=== PATIENT | female | born 1965 | race African-American/Black ===

== ENCOUNTER 2016-11-01 16:22 | Outpatient (CLI) | payer MEDICAID ==
[2014-01-25 06:44] VITALS: BMI 24.8
[~2016-11-01 16:22] MED LIST: PROTONIX40 MG PO
== END 2016-11-01 17:35 ==
LOC: D.MAMMO 16:22
DX: Z12.31 Encounter for screening mammogram for malignant neoplasm of breast (principal)

== ENCOUNTER 2016-12-05 05:30 | Inpatient (IN) | payer MEDICAID ==
[2016-12-03 12:33] LABS: HEMATOCRIT 41.2 % (36.0-48.0); MCH 28.6 pg (26.0-34.0); MCV 84.3 fL (80.0-100.0); MEAN PLATELET VOLUME 11.2 fL (7.4-10.4); PLATELET COUNT 217 10x3/uL (130-400); RBC 4.89 10x6/uL (4.00-5.40); RDW 12.6 % (11.5-14.5); WBC 2.6 10x3/uL (4.8-10.8)
[2016-12-03 12:41] LABS: CALC OSMOLALITY 284 mosm/kg (275-300); CALCIUM 9.2 mg/dL (8.5-10.1); CARBON DIOXIDE 31.5 mmol/L (21.0-32.0); CHLORIDE - SERUM 104 mmol/L (98-107); CREATININE - SERUM 0.8 mg/dL (0.6-1.3); GLUCOSE 108 mg/dL (74-106); SODIUM 141 mmol/L (136-145); UREA NITROGEN 20 mg/dL (7-18); eGFR NON AFRICAN AMERICAN 80 mL/min (90-120)
[2016-12-03 13:26] LABS: ANISOCYTOSIS OCC; EOSINOPHILS 5 % (0-7); LYMPHOCYTES 41 % (15-50); MONOCYTES 7 % (2-11); NEUTROPHILS 45 % (40-80); PLATELET ESTIMATE NORMAL; ROULEAUX OCC
[2016-12-05] VITALS (15 sets, daily range): BP systolic 141–174; BP diastolic 65–79; Ht 165.1 cm; Wt 70.0 kg
[~2016-12-05] VITALS: Ht 165.1 cm; Wt 70.0 kg
[~2016-12-05 05:30] MED LIST changes: +HCTZ25 MG PO; +MULTIPLE VITAMI1 TA1 PO
[2016-12-05 07:08] LABS: HCG SERUM NEGATIVE (NEGATIVE)
--- NOTE | 2016-12-05 07:24 | HP ---
PATIENT: LUÍS PRECIADO MEDICAL RECORD: [id number] ACCOUNT: [id number] LOCATION:[facility] : 65 ADMISSION DATE: 12/05/16 HISTORY AND PHYSICAL EXAMINATION HISTORY OF PRESENT ILLNESS: This patient is a 51-year-old 2, para 2 female with diagnosis of postmenopausal bleeding and enlarging uterus with myomas. She is scheduled for hysterectomy on December 05. MEDICAL HISTORY: PREVIOUS SURGERIES: Include a tubal ligation and a tubal reversal. MEDICAL PROBLEMS: No heart disease. No diabetes. No hypertension. ALLERGIES: No known drug allergies. CURRENT MEDICATIONS: Diclofenac. FAMILY HISTORY: Positive for Alzheimer, colon cancer, diabetes, heart disease, hypertension and strokes. SOCIAL HISTORY: The patient is single. Occasional ethanol use, nonsmoker. PHYSICAL EXAMINATION: GENERAL: Well-developed and well-nourished female, in no distress. HEENT: Unremarkable. LUNGS: Clear. HEART: Regular rate and rhythm. ABDOMEN: Soft and nontender. PELVIC: Examination is current and deferred for anesthesia. EXTREMITIES: No cyanosis, clubbing, or edema. NEUROLOGICAL: Grossly intact. VITAL SIGNS: Weight 154, blood pressure 130/70. IMPRESSION: Postmenopausal bleeding with benign endometrial biopsy, ultrasound revealing uterine enlargement consistent with myomas, small ovarian cyst. PLAN: After discussing problems with the patient and the enlargement of her uterus, total abdominal hysterectomy with probable bilateral salpingo-oophorectomy is planned. I have discussed the need for estrogen replacement therapy and answered all of her questions. She understands the risks include anesthesia, infection, bleeding, possibility of injury to other organs, possibility of second operation. TRANSINT:[id number] Voice Confirmation ID: [id number] DOCUMENT ID: [id number] HISTORY AND PHYSICAL [id number] LUÍS PRECIADO BUCK ALLISON MD at 0724 CC: [id number] DICTATION DATE: 12/03/161702 ALGOLOGIST: 12/03/16 [id number] [place] [address]
--- NOTE | 2016-12-05 11:23 | NUR ---
STEFAN BAUTISTA RN RECEIVED PT FROM . PT IN SEMI FOWLERS POSITION. RESP. EVEN AND UNLABORED PER RN. PRABHJOT LEYVA RN FROM REMAINS IN ROOM AT THIS TIME.
--- NOTE | 2016-12-05 11:45 | NUR ---
ADMISSION ASSESSMENT DONE. SEE FLOW SHEET. 22G IV IN LEFT HAND. SITE CLEAN DRY AND INTACT. LR HANGING AND DRIPPING IN WITHOUT PUMP. PLACED ON PUMP AT 125ML/HR. ROOFER HELPER VINYL COATING DEMEROL SET UP AT 10MG EVERY 10MINUTES. PT RATING PAIN 8/10. 25MG BOLUS GIVEN THROUGH ROOFER HELPER VINYL COATING AT THIS TIME. PT REPORTS NAUSEA. LUNGS CLEAR TO AUSCULTATION. BOWEL SOUNDS HYPOACTIVE. BIKINI LINE INCISION NOTED TO BE CLEAN DRY AND INTACT WITH STERI STRIPS. NO BLEEDING NOTED AT THIS TIME.[address] DRAINING TO GRAVITY. GREEN TINGED URINE NOTED IN COLLECTION CONTAINER. SCD LEGGINGS CONNECTED TO PUMP AND PUMP TURNED ON. ICE PACK APPLIED TO INCISION. FAMILY REMAINS AT BEDSIDE AND DENIES FURTHER NEEDS.
--- NOTE | 2016-12-05 12:50 | NUR ---
PT IN SEMI ORDAZ SPOSITION. AROUSES TO TACTILE STIMULATION. ICE CHIPS PROVIDED. PT RATES PAIN 4/10. SOCKS PROVIDED. PT DENIES FURTHER NEEDS [facility].
--- NOTE | 2016-12-05 14:00 | NUR ---
PT TO RIGHT TILT POSITION. PT DEEP BREATHES WITH GOOD EFFORT BUT REFUSES TO COUGH AT THIS TIME. PT RATING PAIN 5/10 IN ABDOMEN. FAMILY REMAINS AT BEDSIDE AND DENIES FURTHER NEEDS.
--- NOTE | 2016-12-05 15:10 | NUR ---
PT IN RIGHT TILT POSITION. PILLOW PLACED BEHIND KNEES FOR ELEVATION. PT RATING PAIN 8/10 IN ABDOMEN AND DESCRIBES CRAMPING. 25MG DEMEROL BOLUS GIVEN AT THIS TIME FOR BREAKTHROUGH PAIN AT THIS TIME. FAMILY REMAINS AT BEDSIDE AND DENY NEEDS.
--- NOTE | 2016-12-05 16:35 | NUR ---
PT IN RIGHT TILT POSITION. PT RATES PAIN 3/10. NEW D5LR HUNG AT 125ML/HR. FAMILY AT BEDSIDE.
--- NOTE | 2016-12-05 16:39 | NUR ---
PT IN SEMI FOWLERS POSITION VISITING WITH FAMILY. PT RATES PAIN 2/10.
--- NOTE | 2016-12-05 18:00 | NUR ---
PT IN SEMI FOWLERS POSITION VISITING WITH FAMILY. PT DENIES NEEDS AT THIS TIME.
--- NOTE | 2016-12-05 19:38 | NUR ---
REPORT GIVEN TO 7 P SHIFT
--- NOTE | 2016-12-05 19:40 | NUR ---
RCVD PT FROM Juventino ARMENTA RN FOR CONT. CARE. PT LYING IN RT TILT WITH PILLOW SUPPORTING BACK FOR COMFORT. HR-RRR, PPP, BOWEL SOUNDS HYPOX2 (RUQ, RLQ), PIV TO LT HAND PATENT WITH D5LR INFUSING @ 125ML/HR. TOOL AND DIE DESIGNER IN USE. TORADOL GIVEN PER ORDERS AT THIS TIME. SEE EMAR. PT STILL SLIGHTLY DROWSY, BUT WAKES TO CONVERSE AND ANSWER QUESTIONS. 225 LIGHT GREEN URINE EMPTIED FROM UROMETER. PUMPS CLEARED AT THIS TIME. LOW TRANSVERSE INCISION C/D/I WITH STERISTRIPS INTACT. SCD'S ON TO BLE, CONNECTED TO PUMP AND PUMP FUNCTIONING PROPERLY. PT ROLLED ONTO LEFT TILT WITH PILLOW SUPPORTING BACK FOR COMFORT. PT ABLE TO MOVE WELL ON HER OWN WITH NO ASSISTANCE FROM THIS RN. PT DENIES NEEDS AT THIS TIME. WILL CONT. POC. BED LOW, WHEELS LOCKED, CL IN REACH, SIDE RAILS UP X2.
--- NOTE | 2016-12-05 20:36 | NUR ---
Assisted s/o to move pt up in bed. Pt repositioning self. No other needs voiced.
--- NOTE | 2016-12-05 22:03 | NUR ---
Pt resting with eyes closed. S/O at bedside. C/L in reach. Bed low. SR upx2. No needs voiced per s/o.
[2016-12-06] VITALS (7 sets, daily range): BP systolic 115–156; BP diastolic 58–72
--- NOTE | 2016-12-06 00:32 | NUR ---
To room to hang new IV bag. Pt sleeping with eyes closed. Opens eyes spont. No needs observed. S/O at bedside. C/L in reach. Bed low. SR upx2. Pt repositioned to R side.
--- NOTE | 2016-12-06 01:40 | NUR ---
Pt resting with eyes closed. C/O bladder feeling "full". Francis cath drains with position. 400 ml urine drained from cath. Pt states she feels better after bladder emptied.
--- NOTE | 2016-12-06 04:14 | NUR ---
MEPERIDINE WET WASHER MACHINE COMPLETE. NEW SYRINGE INITIATED TO PRESENT TUBING. PT RATES PAIN 5/10 AND TOLERABLE. PT REPORTS MOVING SELF IN BED. 350 ML CLEAR LIGHT GREEN URINE EMPTIED FROM UROMETER. PT DENIES FURTHER NEEDS AT THIS TIME.
--- NOTE | 2016-12-06 04:45 | NUR ---
PAIN REASSESSMENT COMPLETE. PT LYING ON BACK, HOB 30 DEGREES, EYES CLOSED, RESP EVEN & UNLABORED. PT LEFT UNDISTURBED.
--- NOTE | 2016-12-06 06:00 | NUR ---
Pt resting with eyes closed. Repositioned to L side. S/O at bedside. Bed low. SR upx2. C/L in reach.
[2016-12-06 06:01] LABS: HEMATOCRIT 36.7 % (36.0-48.0); HEMOGLOBIN 12.3 g/dL (12-16); MCH 28.1 pg (26.0-34.0); MCHC 33.5 g/dL (31.0-37.0); MEAN PLATELET VOLUME 11.7 fL (7.4-10.4); RBC 4.37 10x6/uL (4.00-5.40); RDW 12.5 % (11.5-14.5); WBC 8.3 10x3/uL (4.8-10.8)
[2016-12-06 06:16] LABS: CALC OSMOLALITY 276 mosm/kg (275-300); CALCIUM 7.9 mg/dL (8.5-10.1); CARBON DIOXIDE 27.4 mmol/L (21.0-32.0); CHLORIDE - SERUM 103 mmol/L (98-107); CREATININE - SERUM 0.8 mg/dL (0.6-1.3); GLUCOSE 127 mg/dL (74-106); POTASSIUM - SERUM 3.3 mmol/L (3.5-5.1); SODIUM 139 mmol/L (136-145); UREA NITROGEN 5 mg/dL (7-18); eGFR NON AFRICAN AMERICAN 80 mL/min (90-120)
--- NOTE | 2016-12-06 07:15 | NUR ---
ENTERED ROOM- PT RESTING WITH LIGHTS DIMMED IN ROOM. AROUSES EASILY WHEN ENTERED ROOM. SIGN OTHER AT BEDSIDE. ASSESSMENT DONE. VERBAL RESPONSES APPRO TO QUESTIONS. ABD INCISION WITH STERI STRIPS- CD&I. EMPTIED 2000CC URINE FROM VARELA BAG - CLEAR WITH BLUEISH TINT. SCD'S ON. PT STATES IS USING THERAPIST ASST AT [facility]. CLEAR LIQ DIET SERVED.
--- NOTE | 2016-12-06 07:38 | OP ---
PATIENT NAME: LUÍS PRECIADO MEDICAL RECORD: [id number] :65 LOCATION:[facility] .1273 ADMISSION DATE: SURGEON: REBEKAH ALLISON MD OPERATION DATE: 12/05/16 DATE OF OPERATION: 12/05/2016 PREOPERATIVE DIAGNOSES: Postmenopausal bleeding and myomas. POSTOPERATIVE DIAGNOSES: Postmenopausal bleeding and myomas. PROCEDURE: Total abdominal hysterectomy with bilateral salpingo-oophorectomy. SURGEON: Rebekah Allison MD ANESTHESIA: General. FINDINGS: A 12-week size, irregular uterus with myomas filling the pelvis. ESTIMATED BLOOD LOSS: 150 cc. COMPLICATIONS OF SURGERY: None. OPERATIVE NOTE: The patient was taken to the OR and under adequate general anesthesia, prepped and draped in the usual manner for abdominal procedures. A transverse incision was then made in the lower abdomen and extended through subcutaneous tissue, fascia, dividing muscles in the midline in the Pfannenstiel manner. Peritoneum was then elevated and incised and this incision extended from the symphysis pubis to within 4 cm of the umbilicus, avoiding the bladder and abdominal organs. Identification of organs was then carried out. The left ovary was adherent to the pelvic sidewall. Myomas were irregular and filling the pelvis. The infundibulopelvic ligament on the right was isolated and ligated using Lei clamps and #1 chromic suture. The round ligaments were then ligated on the right and left using Lei clamps and #1 chromic suture. The peritoneum was then incised and bladder flap developed with blunt and sharp dissection anteriorly to the uterus. The uteroovarian ligament and fallopian tube were then ligated on the left using Lei clamps and #1 chromic suture. Uterine arteries were then skeletonized and ligated using Lei clamps and #1 chromic suture near the uterus. The uterine fundus was then from the cervix using electrocautery without difficulty. This portion of the specimen contained the uterine fundus, the right tube and ovary. The cervix was then carefully from the bladder with blunt and sharp dissection. The cardinal ligaments were then ligated using Lei clamps and #1 chromic suture without difficulty. Lei clamps were then placed across the vaginal apex angles and specimen excised. This portion of the specimen included the cervix only. The vaginal apex was closed using interrupted [id number] #1 chromic sutures. Hemostasis remained good. Pelvis was then copiously irrigated and suctioned and attention turned to the left tube and ovary that were adherent to the pelvic sidewall. These were carefully dissected free, identifying the ureter well away from the placement of clamps and suture, #1 chromic suture was used to ligate the infundibulopelvic ligament on the left. This portion of the specimen contained the left tube and ovary. The pelvis was then copiously irrigated and hemostasis confirmed. William was used at the vaginal apex. Sponge and instrument counts were correct. Fascial layer closed in a running noninterlocking #1 PDS loop suture. Skin incision closed using a subcuticular OPERATIVE REPORT [id number] LUÍS PRECIADO 2-0 plain gut subcuticular suture. Dermabond was applied followed by a Steri-Strip dressing. Sponge, needle counts were all correct times 2. The patient went to the recovery area in good condition. TRANSINT:[id number] Voice Confirmation ID: [id number] DOCUMENT ID: [id number] REBEKAH ALLISON MD at 0738 CC: [id number] DICTATION DATE: 12/05/16 1018 AIR CONDITIONER INSTALLER HELPER: 12/05/16 [id number] [place] [address]
--- NOTE | 2016-12-06 08:50 | NUR ---
IV TO SALINE LOCK WITH NS FLUSH. IV SITE WITHOUT EDEMA OR ERYTHEMA. VARELA CATH REMOVED WITH 10ML BULB DEFLATED.
--- NOTE | 2016-12-06 10:00 | NUR ---
PT REQUESTING PAIN MEDICATION. RATES PAIN A 10 ON SCALE OF 0-10. CO CRAMPING PAINS IN LOWER ABD AND BACK. DEMEROL 50MG PO GIVEN. NOTED THAT BEEN 6+ HRS SINCE TORADOL GIVEN. ATTEMPTED TO FLUSH SALINE LOCK - CLOTTED. SALINE LOCK REMOVED- CATH INTACT- BANDAIDE APPLIED.
--- NOTE | 2016-12-06 10:20 | NUR ---
PT STATES WANTS TO GET UP TO TRY TO VOID. AMBULATORY TO BATHROOM- UNABLE TO VOID. CO FEELING DIZZY AND NAUSEATED. RETURNED TO BED. PT DENIES BEING ABLE TO PASS FLATUS.
--- NOTE | 2016-12-06 10:35 | NUR ---
IV RESTARTED IN RT WRIST USING 22G CATH WITHOUT DIFFICULTY- SALINE FLUSH. TORADOL 30MG IV GIVEN.
--- NOTE | 2016-12-06 10:50 | NUR ---
PT STATES THAT PAIN IS WORSE- "SINCE SHE TOOK MY CATHETEROUT" IN AND OUT CATH DONE USING DIABETES EDUCATION COORDINATOR WITH 150CC YELLOW URINE RETURN. PT STATES FEELS SOME BETTER. PRUNE JUICE AND SPRITE GIVEN PER Emigdio CARVALHO RN. ABD APPEARS MORE ROUNDED BUT SOFT. CONT TO DENY PASSING FLATUS. POSITION ON FAR LT SIDE.
--- NOTE | 2016-12-06 11:06 | NUR ---
PT TALKING WITH VISITORS. STATES FEELS A BIT BETTER.
--- NOTE | 2016-12-06 11:45 | NUR ---
STATES IS FEELING BETTER. DENIES PASSING FLATUS YET. DAUGHTER AT BEDSIDE. PT STATES WILL WALK IN UNIT. UP TO SHOWER- SHOWER TAKEN AND JESUS WELL. DENIES WANTING TO WALK IN UNIT AFTER SHOWER- STATES FEELS A LITTLE DIZZY. VISITORS AT BEDSIDE.
--- NOTE | 2016-12-06 12:47 | NUR ---
pt ambulating in hallway with daughter. dr medina in unit- new orders received.
--- NOTE | 2016-12-06 14:10 | NUR ---
up to bathroom- voided 200cc sl blood tinged urine. states passed a little gas.
--- NOTE | 2016-12-06 14:30 | NUR ---
requesting pain medication. rates pain a 5 on scale of 0-10. requests demerol 100mg.
--- NOTE | 2016-12-06 14:35 | NUR ---
up to bathroom to void. 200cc clear urine this time- pt states did not hurt to urinate, was easier getting up.
--- NOTE | 2016-12-06 19:30 | NUR ---
PT RECEIVED SITTING UP IN BED AAOX3 WATCHING TV AT THIS TIME. VSS. PT RATES PAIN 0/10. S/L NOTED TO LT HAND, DRESSING CDI. HEART RRR. LUNG SOUNDS CLEAR BILATERALLY. BOWEL SOUNDS ACTIVE X4 QUADRENTS. ABDOMEN SOFT WITH TENDERNESS. LOW TRANSVERSE INCISION NOTED TO ABDOMEN WITH STERI STRIPS. NO REDNESS, SWELLING, OR PURULENT DRAINAGE NOTED AT THIS TIME. SCDS NOTED TO BLE. PT REQUESTS TISSUES AT THIS TIME. DENIES OTHER NEEDS. BED LOW. PHONE AND CALL LIGHT IN REACH. SRX2.
--- NOTE | 2016-12-06 20:54 | NUR ---
PT RESTING QUIETLY AT THIS TIME WITH EYES CLOSED. RESPIRATIONS EVEN, NON-LABORED. NO ACUTE DISTRESS NOTED AT THIS TIME. BED LOW. PHONE AND CALL LIGHT IN REACH. SRX2.
--- NOTE | 2016-12-06 22:30 | NUR ---
PT SITTING UP IN BED VISITING WITH FAMILY AT THIS TIME. DENIES NEEDS. BED LOW. PHONE AND CALL LIGHT IN REACH. SRX2.
--- NOTE | 2016-12-07 00:10 | NUR ---
PT RESTING QUIETLY AT THIS TIME WITH EYES CLOSED. AROUSED EASILY. VSS. PT DENIES NEEDS. BED LOW. PHONE AND CALL LIGHT IN REACH. SRX2.
[2016-12-07 00:12] VITALS: BP 140/61
--- NOTE | 2016-12-07 03:23 | NUR ---
PT C/O GAS PAINS AT THIS TIME AND REQUESTS DULCOLAX SUPPOSITORY. ADMINISTERED SUPPOSITORY AT THIS TIME. PT DENIES OTHER NEEDS. BED LOW. PHONE AND CALL LIGHT IN REACH. SRX2.
--- NOTE | 2016-12-07 03:33 | NUR ---
PT STATES SHE IS PASSING A LITTLE GAS AT THI STIME AND FEELS A LITTLE BIT BETTER. WILL CONTINUE TO MONITOR.
--- NOTE | 2016-12-07 03:53 | NUR ---
PT RESTING QUIETLY AT THIS TIME WITH EYES CLOSED. DENIES NEEDS. BED LOW. PHONE AND CALL LIGHT IN REACH. SRX2.
[2016-12-07 03:54] VITALS: BP 170/74
--- NOTE | 2016-12-07 05:19 | NUR ---
PT UP USING RESTROOM AT THIS TIME. DENIES NEEDS. BED LOW. PHONE AND CALL LIGHT IN REACH. SRX2.
--- NOTE | 2016-12-07 06:13 | NUR ---
PT RESTING QUIETLY AT THIS TIME WITH EYES CLOSED. AROUSED EASILY. DENIES NEEDS. BED LOW. PHONE AND CALL LIGHT IN REACH. SRX2.
[2016-12-07 07:33] VITALS: BP 194/84
--- NOTE | 2016-12-07 07:35 | NUR ---
PT CALLS OUT POULTRY CLEANER LIGHT REQUESTING PAIN MEDICATION, THIS RN TO ROOM FOR SHIFT ASSESSMENT. PT LYING IN BED SUPINE, HOB 30 DEGREES. AAOx3. ASSESSMENT COMPLETED, VS OBTAINED, SEE FLOWSHEET FOR DOC. BP NOTED TO BE ELEVATED AT 194/84. PT RATING PAIN 7/10 IN BACK. PT REQUESTING ORDERED DEMEROL AND A HEAT PACK. PT ADMIN PRN DEMEROL ORDERED AND SMALL WARMER PACKS FROM [facility] APPLIED TO BACK WITH POSITION CHANGE FROM BACK TO RIGHT TILT, SUPPORTED WITH PILLOW. LT ABD INCISION WITH STERISTRIPS IS C/D/I. NO REDNESS, EDEMA, STREAKING, OR DRAINAGE NOTED TO SITE. PT REPORTS A SMALL AMT OF VAGINAL BLEEDING THE FIRST TIME SHE GOT UP TO VOID, BUT NOTHING ELSE SINCE. NO VAGINAL BLEEDING NOTED AT THIS TIME. RIGHT WRIST PIV IS SALINE LOCKED, C/D/I. SCD'S ON BILAT. PT REPORTS DECREASED APPETITE WITH POST OP PAIN AND DOES NOT WANT BREAKFAST SERVED. PT AGREES SHE WOULD LIKE SOMETHING BLAND LIKE CHICKEN NOODLE SOUP. POC DISCUSSED WITH PT TO MANAGE PAIN, SHOWER, AND AMBULATE. PT VERBALIZES UNDERSTANDING. SRUx2, CL IN REACH. SPOUSE AT BEDSIDE.
--- NOTE | 2016-12-07 07:40 | NUR ---
PT PROVIDED WITH REQUESTED CHICKEN NOODLE SOUP, DENIES FURTHER NEEDS.
--- NOTE | 2016-12-07 07:50 | NUR ---
DR ALLISON ON UNIT FOR ROUNDS, REPORT GIVEN. ORDER RECEIVED TO RESUME HOME BP MEDICATION OF HCTZ 25MG PO DAILY. WILL ADMIN ORDERED.
--- NOTE | 2016-12-07 08:52 | NUR ---
THIS RN TO ROOM FOR SCHEDULED STAKING TECHNICIAN AND BP CHECK. BP NOTED TO BE 148/68. PT ADMIN ORDERED MEDS, SEE EMAR FOR DOC. PT RATING PAIN 1/10 AT THIS TIME, IN BACK. PT DENIES NEEDS, RESTING WITH EYES CLOSED. LIGHTS IN ROOM DIMMED. WILL CONT TO MONITOR.
[2016-12-07 08:53] VITALS: BP 148/68
--- NOTE | 2016-12-07 09:42 | NUR ---
PT ADMIN ORDERED PEPCID, SEE EMAR FOR DOC. PT DENIES PAIN. PT ENCOURAGED TO AMBULATE SHOWER AND AMBULATE WHILE PAIN IS WELL CONTROLLED. PT STATES SHE WANTS TO REST FOR NOW AND RETURNS TO RESTING WITH EYES CLOSED. SRUx2, CL IN REACH. WILL CONT TO MONITOR.
[2016-12-07 11:46] VITALS: BP 138/72
--- NOTE | 2016-12-07 11:50 | NUR ---
PT CALLS OUT REQUESTING PAIN MEDICATION. THIS RN TO ROOM. PT STATES HER PAIN IS A 5 WITH MOVEMENT AND SHE WANTS TO TAKE HER DEMEROL NOW TO "STAY AHEAD OF IT." VSS, SEE FLOWSHEET FOR DOC. FAST FOODS WORKER ORDERED, SEE EMAR FOR DOC.
--- NOTE | 2016-12-07 12:15 | NUR ---
PT PILOT SUBMERSIBLE LIGHT REQUESTING RN. THIS RN TO ROOM. PT DENIES PAIN AND STATES SHE IS READY TO GO HOME, AND NEEDS TO BE GONE BY 1300 FOR HER DAUGHTER TO BE ABLE TO PICK HER UP. WILL NOTIFY DR ALLISON.
--- NOTE | 2016-12-07 12:18 | NUR ---
DR GONSALEZ'S OFFICE CALLED REGARDING CONSULT NO NOTE FROM HIM IS SEEN FOLLOWING DR ALLISON'S REQUEST FOR CONSULT. OFFICE STAFF STATES HE IS OUT TODAY, AND ASKS IF CONSULT NEED IS URGENT. WILL SPEAK WITH DR ALLISON.
--- NOTE | 2016-12-07 12:20 | NUR ---
DR ALLISON PHONED AND REPORT GIVEN ON PT'S DESIRE TO GO HOME, WELL MOST RECENT VITALS AND PAIN RATING, AND THAT PT IS ADAMANT SHE NEEDS TO D/C BY 1300. DISCUSSED CONSULT WITH DR GONSALEZ. DR ALLISON STATES THAT CONSULT IS NOT URGENT AND PT MAY FOLLOW UP WITH DR GONSALEZ LATER. DR ALLISON STATES SHE WILL TRY TO HAVE D/C COMPLETED BY [address]. [address] [facility]IN[facility] AND PT OF POC.
--- NOTE | 2016-12-07 12:30 | NUR ---
THIS RN TO ROOM. PT INFORMED OF POC. PT PHONES DAUGHTER TO NOTIFY HER OF D/C TO HOME. PT STATES HER DAUGHTER IS AN FOUNDRY HAND, AND THAT SHE WILL BE GOING TO STAY WITH HER FOR RECOVERY. PT DENIES NEEDS AT THIS TIME. SRHans2, CL IN REACH.
--- NOTE | 2016-12-07 13:40 | NUR ---
PT GIVEN DISCHARGE INSTRUCTIONS, WELL WRITTEN PRESCRIPTIONS FOR PAIN CONTROL POST D/C TO HOME. PT VERBALIZES UNDERSTANDING AND DENIES QUESTIONS. PT PHONES DAUGHTER AND STATES HER DAUGHTER IS WAITING IN THE CAR AT THE MAIN ENTRANCE TO DRIVE HER HOME. WILL OBTAIN W/C FOR D/C OUT.
--- NOTE | 2016-12-07 13:42 | NUR ---
PT TAKEN OFF UNIT VIA W/C FOR D/C TO HOME, INSTRUCTIONS IN HAND.
== END 2016-12-07 13:42 | disposition home or self-care (01) | DRG 743 ==
LOC: D.OPS 05:30 → D.PAN 07:30 → D.LD 10:28 → D.OPS 11:31 → D.LD 11:31 → D.OPS 12-06 09:34 → D.LD 12-06 09:34 → D.OPS 12-06 09:34 → D.LD 12-06 09:34
PROVIDERS: ADMIT Obstetrics & Gynecology
PROC: 0UTC0ZZ Resection of Cervix, Open Approach (ICD-10-PCS; 2016-12-05)
PROC: 0UT70ZZ Resection of Bilateral Fallopian Tubes, Open Approach (ICD-10-PCS; 2016-12-05)
PROC: 0UT20ZZ Resection of Bilateral Ovaries, Open Approach (ICD-10-PCS; 2016-12-05)
PROC: 0UT90ZZ Resection of Uterus, Open Approach (ICD-10-PCS; principal; 2016-12-05 07:30)
DX: N95.0 Postmenopausal bleeding (principal); D25.9 Leiomyoma of uterus, unspecified

== ENCOUNTER 2018-05-16 08:00 | Outpatient (CLI) | payer MEDICAID ==
[2016-12-05 16:01] VITALS: BMI 25.6
== END 2018-05-16 09:00 | disposition home or self-care (01) ==
LOC: D.MAMMO 08:00
DX: Z12.31 Encounter for screening mammogram for malignant neoplasm of breast (principal)